=== PATIENT | female | born 1960 | race Caucasian/White ===

== ENCOUNTER → 2018-09-30 | Outpatient (REF) ==
[~2018-09-30] MED LIST: BACTRIM DS1 TAB PO
[2018-09-30 12:55] LABS: CHOLESTEROL HDL RATIO 3.7 (<4.4 (CALC))
== END | disposition home or self-care (01) | DRG 951 ==
LOC: LAB 11:02
PROVIDERS: ATTEND Family Medicine
DX: Z02.6 Encounter for examination for insurance purposes (principal)

== ENCOUNTER → 2018-09-30 | Outpatient (REF) | payer OTHER ==
[2018-09-30 12:20] LABS: HEMATOCRIT 36.9 % (37.0-47.0); HEMOGLOBIN 11.8 g/dl (12.0-16.0); MEAN CELL VOLUME 86.2 fL CALC (80.0-100.0); MEAN CORPUSCULAR HGB 27.6 pG CALC (26.0-32.0); RED BLOOD COUNT 4.28 mill/uL (4.20-5.60); RED CELL DISTRI WIDTH 14.9 % (11.5-15.5)
[2018-09-30 12:54] LABS: ALBUMIN 4.4 g/dL (3.2-5.0); ALKALINE PHOSPHATASE 54 u/l (38-126); ANION GAP 15 (6-22 (CALC)); BILIRUBIN, TOTAL 0.4 mg/dL (0.0-1.4); BUN 25 mg/dL (7-17); BUN/CREATININE RATIO 31 (12-20 (CALC)); CARBON DIOXIDE 23 mmol/l (22-30); CHLORIDE 106 mmol/l (95-108); CREATININE 0.8 mg/dL (0.5-1.0); GFR > 60 ML/MIN (>=60 (CALC)); GFR FOR AFR.AMER. > 60 ML/MIN (>=60 (CALC)); POTASSIUM 4.5 mmol/l (3.5-5.1); SGOT/AST 26 u/l (14-36); SODIUM 139 mmol/l (137-146); TOTAL PROTEIN 7.2 g/dL (6.3-8.2)
[2018-09-30 13:32] LABS: IMMATURE GRANULOCYTES 0.4 % (0.0-5.0); NEUT# 2.7 thou/uL (2.00-7.15)
== END | disposition home or self-care (01) | DRG 639 ==
LOC: LAB 11:04
PROVIDERS: ATTEND Internal Medicine
DX: E11.69 Type 2 diabetes mellitus with other specified complication (principal)

== ENCOUNTER 2021-01-26 10:06 | Inpatient (IN) | payer OTHER ==
[~2021-01-26] VITALS: Ht 157.5 cm; Wt 73.0 kg
--- NOTE | 2021-01-26 10:16 | NUR ---
PT ARRIVED TO [facility] ROOM 269 VIA WHEELCHAIR ACCOMPAINED BY . PT A/O X3. ASSESSMENT AND VITALS COMPLETED.TEMP 99.4 BP 132/82, HR 116, O2 97% ON ROOM AIR. RESPIRATIONS ARE EVEN AND UNLABORED WITH NO DISRTESS NOTED.LUNG SOUNDS ARE CLEAR. HEART RHYTHM NORMAL. BOWEL SOUNS AREACTIVE, LAST REPORTED BM 01/26/21.RADIAL AND PEDAL PULSES STRONG.SKIN INTACT. #22G LAC STARTED,IVF INFUSING PER ORDER, SITE REMAINS HEALTHY AND PATENT.PT DENIES OF ANY PAINS OR DISCOMFORTS.PT ORIENTED TO ROOM AND CALL SYSTEM.ALLERGY BAND APPLIED. ALLERGIES NOTED.ALL SAFETY PRECAUTIONS ARE IN PLACE WITH CALL LIGHT IN REACH.WILL CONTINUE TO MONITOR.
[2021-01-26] MEDS ORDERED: HYDROXYCHLOR200 M1 PO (11:03)
[2021-01-26] MEDS ORDERED: OMEPRAZOLE DR20 MG PO (11:03)
[2021-01-26] MEDS ORDERED: LOSARTAN POTASS25 MG PO (11:13)
[2021-01-26] MEDS ORDERED: ASPIRIN 81 LOW81 MG (11:14)
[2021-01-26] MEDS ORDERED: LORATADINE10 M1 PO (11:15)
[2021-01-26] MEDS ORDERED: VITAMIN D35000 UNI1 PO (11:16)
[2021-01-26] MEDS ORDERED: ZOFRAN4 M1 PO (11:17)
[2021-01-26 11:29] VITALS: BP 132/82
--- NOTE | 2021-01-26 12:30 | NUR ---
DR CAAL AT BEDSIDE
--- NOTE | 2021-01-26 12:54 | NUR ---
PT RESTING IN SEMI FOWLERS POSITION.RESPIRATIONS ARE EVEN AND UNLABORE DWITH NO DISTRESS NOTED. #22G LAC INFUSING WITH IVF PER ORDER, SITE REMAINS HEALTHY AND PATENT. PT DENIES OF ANY NEEDS AT THIS TIME.ALL SAFETY PRECAUTIONS ARE IN PLACE. WILL CONTINUE TO MONITOR.
[2021-01-26 12:56] LABS: HEMATOCRIT 28.4 % (37.0-47.0); MEAN CELL VOLUME 78.7 fL CALC (80.0-100.0); MEAN CORPUSCULAR HGB 24.9 pG CALC (26.0-32.0); MEAN CORPUSCULAR HGB CONC 31.7 g/dL CAL (32.0-36.0); RED BLOOD COUNT 3.61 mill/uL (4.20-5.60); RED CELL DISTRI WIDTH 15.7 % (11.5-15.5)
[2021-01-26 13:34] LABS: ALBUMIN 3.4 g/dL (3.2-5.0); BILIRUBIN, TOTAL 0.7 mg/dL (0.0-1.4); CREATININE 1.3 mg/dL (0.5-1.0); TOTAL PROTEIN 7.1 g/dL (6.3-8.2)
--- NOTE | 2021-01-26 13:56 | NUR ---
REASSESSMENT OF TEMP REUSLTING IN 96.8.
[2021-01-26 15:11] LABS: URINE BILIRUBIN - DIPSTICK NEGATIVE (NEGATIVE); URINE BLOOD DIPSTICK TRACE-INTACT (NEGATIVE); URINE COLOR YELLOW; URINE GLUCOSE - DIPSTICK NEGATIVE (NEGATIVE); URINE KETONE TRACE mg/dL (NEGATIVE); URINE LEUK ESTERASE LARGE (NEGATIVE); URINE NITRITE - DIPSTICK NEGATIVE (Negative); URINE PROTEIN - DIPSTICK TRACE mg/dL (NEG-TRACE); URINE UROBILINOGEN - DIPSTICK 0.2 E.U./dL (0.2)
[2021-01-26 15:17] LABS: URINE SQUAMOUS EPITHELIAL CELL RARE EPI/hpf (0-FEW); URINE WBC 50-100 WBC/hpf (0-5)
[2021-01-26 15:18] LABS: URINE BACTERIA MODERATE hpf
[2021-01-26 15:46] VITALS: BP 90/62
--- NOTE | 2021-01-26 15:51 | NUR ---
PT RESTING IN SEMI FOWLERS POSITION. RESPIRATIONS ARE EVEN AND UNLABORED WITH NO DISRTESS NOTED ON ROOM AIR. #22G LAC INFUSING WITH IVF PER ORDER, SITE REMAINS HEALTHY AND PATENT. PT STATES ZOFRAN IS HELPING WITH ABD CRAMPING. PT DENIES OF ANY NEEDS AT THIS TIME. ALL SAFETY PERCAUTIONS ARE IN PLACE WITH CALL LIGHT INREACH. WILL CONTINUE TO MONITOR.
[2021-01-26 17:53] VITALS: BP 90/53
--- NOTE | 2021-01-26 17:55 | NUR ---
REASSESSMENT OF BP AFTER COMPLETION OF BOLUS RESULTING IN 90/53, HR 74.RESPIRATIONS REMAINS EVEN AND UNLABORED WITH NO DISTRESS. PT DENIES OF ANY NEEDS AT THIS TIME.ALL SAFETY PRECAUTIONS ARE IN PLACE WITH CALL LIGHT IN REACH. WILL CONTINUE TO MONITOR.
[2021-01-26 18:57] VITALS: BP 96/65
--- NOTE | 2021-01-26 20:10 | NUR ---
PT MEDICATED FOR CONSTIPATION, ASSESSEMENT COMPLETED AT THIS TIME. LUNG SOUNDS ARE CLEAR, TRACE EDEMA BLE. HYPO BOWEL SOUDS AUSCULTATED. NON-DISTENDED/FIRM. LOCX4. DENIES PAIN OR NAUSEA AT THIS TIME. REVIEWED MEDICATION SCHEDULE AND POC WITH HER, VERBALIZED UNDERSTANDING. PILLOW PLACED UNDER LEFT ARM FOR IV COMFORT/SITE APPEARS HEALTHY. CALL LIGHT IN HAND AND I ENCOURAGED HER TO CALL ANY NEEDS ARISE.
--- NOTE | 2021-01-26 21:20 | NUR ---
PT MEDICATED ORDERS PROVIDE. IV ANTIBIOTIC THERAPY RUNNING AT THIS TIME TO SITE IN THE RAC/APPEARS PATENT AND HEALTHY. SHE DENIES ANY NEEDS AT THIS TIME. CALL LIGHT IN HAND, LIGHTS AND TV ON LOW. VOCALIZED THAT SHE WILL CALL IF ANY NEEDS ARISE.
--- NOTE | 2021-01-26 23:35 | NUR ---
PT AWAKE WATCHING TV. MEDICATED WITH TYLENOL FOR BACK PAIN REPORTEDLY "FROM THE BED." ADDITIONAL PILLOWS PROVIDED FOR COMFORT AND PO FLUIDS PROVIDED. IVF RUNNING TO [facility]/SITE APPEARS PATENT AND HEALTHY. I ENCOURAGED HER TO CALL IF ANY NEEDS OF ASSISTANCE ARISE, VERBALIZED UNDERSTANDING. CALL LIGHT W/IN REACH.
--- NOTE | 2021-01-27 02:39 | NUR ---
PT CALLED, IVPUMP SOUNDING. SHE WAS SLEEPING. CALL LIGHT AT SIDE.
[2021-01-27 03:44] VITALS: BP 99/66
[2021-01-27 06:24] LABS: HEMATOCRIT 26.2 % (37.0-47.0); HEMOGLOBIN 8.2 g/dl (12.0-16.0); MEAN CELL VOLUME 80.9 fL CALC (80.0-100.0); MEAN CORPUSCULAR HGB 25.3 pG CALC (26.0-32.0); MEAN CORPUSCULAR HGB CONC 31.3 g/dL CAL (32.0-36.0); RED BLOOD COUNT 3.24 mill/uL (4.20-5.60)
[2021-01-27 06:48] LABS: ANION GAP 11 (6-22 (CALC)); BUN 20 mg/dL (7-17); BUN/CREATININE RATIO 18 (12-20 (CALC)); CARBON DIOXIDE 23 mmol/l (22-30); CHLORIDE 104 mmol/l (95-108); CREATININE 1.1 mg/dL (0.5-1.0); GFR 51 ML/MIN (>=60 (CALC)); GFR FOR AFR.AMER. > 60 ML/MIN (>=60 (CALC)); POTASSIUM 4.3 mmol/l (3.5-5.1); SODIUM 134 mmol/l (137-146)
--- NOTE | 2021-01-27 07:00 | NUR ---
RECIEVED REPORT FROM RENE PHAN
[2021-01-27 07:01] LABS: MAGNESIUM 2.3 mg/dL (1.6-2.3)
[2021-01-27 07:26] VITALS: BP 102/61
--- NOTE | 2021-01-27 07:26 | NUR ---
PT RESTING IN SEMI FOWLERS POSITION. ASSESSMENT AND VITALS COMPLETED. BP 102/61, HR 82, O2 100% ON ROOM AIR. RESPIRATIONS ARE EVEN AND UNLABORED WITH NO DISTRESS NOTED. LUNG SOUNDS ARE CLEAR. HEART RHYTHM IS NORMAL. BOWEL SOUNDS ARE ACTIVE. LOSSE STOOL REPORTED. SKIN INTACT.1+ EDEMA NOTED TO BLE. #22G LAC INFUSING WITH IVF PER ORDER, SITE REMAINS HEALTHY AND PATENT. PT DENIES OF ANY PAINS OR DISCOMFORTS AT THIS TIME. ALL SAFTEY PRECAUTIONS ARE IN PLACE WITH CALL LIGHT IN REACH. WILL CONTINUE TO MONITOR.
--- NOTE | 2021-01-27 09:31 | NUR ---
DR. CAAL AND JEROD STUART AT BEDSIDE
--- NOTE | 2021-01-27 11:14 | NUR ---
PT OF OUT SHOWER IN RECYLINER. RESPIRATIONS ARE EVEN AND UNLABORED WITH NO DISTRESS NOTED. #22G LAC INFUSING WITH IVF PER ORDER, SITE REMAINS HEALTHY AND PATENT. PT MEDICATED WITH ZOFRAN FOR NAUSEA. TYLENOL ADMINISTERED FOR PAIN. PT DENIES OF ANY ADDITIONAL NEEDS AT THIS TIME. ALL SAFETY PRECAUTIONS ARE IN PLACE WILL CONTINUE TO MONITOR.
[2021-01-27 14:40] VITALS: BP 97/74
--- NOTE | 2021-01-27 15:43 | NUR ---
PT RESTING IN SEMI FOWLERS POSITION ON PHONE. RESPIRATIONS ARE EVEN AND UNLABORED WITH NO DISTRESS NOTED. #22G LAC INFUSING WITH IVF PER ORDER, SITE REMAINS HEALTHY AND PATENT. PT DENIES OF ANY NEEDS AT THIS TIME. ALL SAFETY PRECAUTIONS ARE IN PLACE WITH CALL LIGHT IN REACH. WILL CONTINUE TO MONITOR.
--- NOTE | 2021-01-27 18:28 | NUR ---
NURY TELLEZ APPLIED. PT MEDICATED FOR 6/10 BACK PAIN. PT TOLERATED WELL. PT DENIES OF ANY ADDITONAL NEEDS AT THIS TIME. ALL SAFETY PRECAUTIONS ARE IN PLACE WITH CALL LIGHT IN REACH. WILL CONTINUE TO MONITOR.
[2021-01-27 18:40] VITALS: BP 108/70
--- NOTE | 2021-01-27 20:01 | NUR ---
PATIENT RESTING IN BED WATHCING TV. RESP EVEN AND UNLABORED. NO S/S OF DISTRESS NOTED. FALL AND SAFTEY PRECAUTIONS IN PLACE. PATIENT SHE IS FEELING BETTER TODAY. IV INFUSING FLUIDS. PLAN OF CARE DISCUSSED. PATIENT INFORMED TO CALL WITH ANY QUESTIONS OR CONCERNS.
--- NOTE | 2021-01-27 23:30 | NUR ---
PATIENT RESTING IN BED WITH EYES CLOSED. RESP EVEN AND UNLABORED. NO S/S OF DISTRESS NOTED. FALL AND SAFTEY PRECAUTIONS IN PLACE.
[2021-01-28 03:32] VITALS: BP 120/81
[2021-01-28 03:56] LABS: HEMATOCRIT 30.1 % (37.0-47.0); HEMOGLOBIN 9.1 g/dl (12.0-16.0); MEAN CELL VOLUME 82.2 fL CALC (80.0-100.0); MEAN CORPUSCULAR HGB 24.9 pG CALC (26.0-32.0); MEAN CORPUSCULAR HGB CONC 30.2 g/dL CAL (32.0-36.0); RED BLOOD COUNT 3.66 mill/uL (4.20-5.60); RED CELL DISTRI WIDTH 16.3 % (11.5-15.5)
[2021-01-28 04:09] LABS: ALKALINE PHOSPHATASE 80 u/l (38-126); BUN 14 mg/dL (7-17); BUN/CREATININE RATIO 14 (12-20 (CALC)); CHLORIDE 109 mmol/l (95-108); GFR 57 ML/MIN (>=60 (CALC)); GFR FOR AFR.AMER. > 60 ML/MIN (>=60 (CALC)); POTASSIUM 4.1 mmol/l (3.5-5.1); SGOT/AST 26 u/l (14-36); SODIUM 135 mmol/l (137-146); TOTAL PROTEIN 5.7 g/dL (6.3-8.2)
[2021-01-28 04:13] LABS: ALBUMIN 2.6 g/dL (3.2-5.0); ANION GAP 12 (6-22 (CALC)); BILIRUBIN, TOTAL 0.2 mg/dL (0.0-1.4); CARBON DIOXIDE 18 mmol/l (22-30)
--- NOTE | 2021-01-28 04:33 | NUR ---
PATIENT WOKE UP AT 0340 WITH CHEST PAIN/PRESSURE.EKG PERFORMED- ER DOCTOR REVIEWED, HE STATED IT WAS ABNORMAL. TROP WERE POSITIVE, BNP ELEVATED. NOTIFIED. REQUESTING TRANSFER TO [facility]. PATIENT AWARE AND AGREEING TO TRANSFER AT THIS TIME.
--- NOTE | 2021-01-28 04:40 | NUR ---
CALL PLACED TO [facility] TRANSFER [facility]. GAVE INFORMATION TO ABBEY AND FAX'D OVER REQUESTED PAPERS. AWAITING ROOM ASSIGNMENT.
--- NOTE | 2021-01-28 04:56 | NUR ---
NEW ORDERS GIVEN FOR ASA, LOPRESSOR, LOW-DOSE HEPARIN DRIP, LIPITOR, AND REPEAT TROP AT 0545 PER
[2021-01-28 05:42] LABS: ACT PARTIAL THROMBO TIME 28.3 SECONDS (20.0-32.5); PROTHROMBIN TIME 10.3 SECONDS (9.0-12.5)
--- NOTE | 2021-01-28 05:45 | NUR ---
RECEIVED CALL FROM ABBEY MADRID AT [facility], WHO STATED THAT PATIENT INSURANCE WOULD REQUIRE VERIFICATION FROM BUSINESS OFFICE. CALL WAS IMMEDIATELY PLACED TO Rose Mary GÓMEZ, [employer], WHO CALLED [facility] TO ADVISE OF PARTNERSHIP AGREEMENT. BY THIS TIME [facility] HAD REALIZED THEIR ERROR AND WILL CONTACT US WITH NAME OF ACCEPTING PHYSICIAN.
--- NOTE | 2021-01-28 07:05 | NUR ---
REPORT RECEIVED FROM RENE HOBSON
--- NOTE | 2021-01-28 07:23 | NUR ---
[facility] CALLED AND ETA 30 MINUTES FOR TRANSPORT TO [facility]
--- NOTE | 2021-01-28 07:30 | NUR ---
PT RESTING IN SEMI FOWLERS POSITION,A&O X3;VS OBTAINED AND ASSESSMENT COMPLETED;PT DENIES ANY CURRENT PAIN OR DISCOMFORTS,PAIN SCALE AND REPORTING EDUCATED;RESPIRATIONS EVEN AND UNLABORED ON RA;ABDOMEN SOFT ON PALPATION AND ACTIVE IN ALL 4 QUADRANTS;#22G TO LAC INFUSING HEPRAIN @ 17ML/HR;PT RE-EDUCATED ON POC INCLUDING TRANSFER TO [facility] AND VERBALIZES UNDERSTANDING,PER [facility]ER DIAL TIME 0800;PT DENIES ANY ADDITIONAL NEEDS AND IS ENCOURAGED TO CALL FOR ASSISTANCE IF NEEDED;FALL PRECAUTIONS IN PLACE WITH BED IN THE LOWEST POSITION AND CALL LIGHT IN REACH;WILL CONTINUE TO MONITOR
[2021-01-28 08:00] VITALS: BP 103/66
--- NOTE | 2021-01-28 08:08 | NUR ---
PT TRANSFERRED TO [facility] AT THIS TIME VIA STRETCHER ACCOMPANIED [facility].ALL BELONGINGS LEFT WITH PT.
--- NOTE | 2021-01-28 08:31 | NUR ---
REPORT CALLED TO RENE SMITH AT [facility].
[2021-03-30] MEDS ORDERED: PROCHLORPER25 MG PO (09:52)
[2021-03-30] MEDS ORDERED: METOPROL TAR25 MG PO (09:52)
[2021-03-30] MEDS ORDERED: ACETAMIN500 M2 PO (09:53)
[2021-03-30] MEDS ORDERED: BC HEADACH1 PO (09:54)
[2021-03-30] MEDS ORDERED: PACLITAXEL IV (09:54)
[2021-03-30] MEDS ORDERED: CARBOPLATIN IM (09:55)
== END 2021-01-28 08:09 | disposition short-term general hospital (02) | DRG 871 ==
LOC: MS2 10:06
PROVIDERS: Nurse Practitioner Family; ADMIT Internal Medicine; ATTEND Hospitalist
DX: A41.51 Sepsis due to Escherichia coli [E. coli] (principal); I21.4 Non-ST elevation (NSTEMI) myocardial infarction; N39.0 Urinary tract infection, site not specified; N17.9 Acute kidney failure, unspecified; R65.20 Severe sepsis without septic shock; E86.0 Dehydration; D64.9 Anemia, unspecified; R73.03 Prediabetes; M06.9 Rheumatoid arthritis, unspecified; K21.9 Gastro-esophageal reflux disease without esophagitis; Z79.899 Other long term (current) drug therapy; Z20.822 Contact with and (suspected) exposure to COVID-19
CPT/HCPCS: J0692; J1644; J1650; J1756; S0164

== ENCOUNTER 2021-04-02 06:58 | Day surgery (SDC) | payer OTHER ==
[~2021-04-02] VITALS: Ht 157.5 cm; Wt 66.3 kg
[~2021-04-02 06:58] MED LIST changes: +ACETAMIN500 M2 PO; +ASPIRIN 81 LOW81 MG; +BC HEADACH1 PO; +CARBOPLATIN IM; +HYDROXYCHLOR200 M1 PO; +LORATADINE10 M1 PO; +LOSARTAN POTASS25 MG PO; +METOPROL TAR25 MG PO; +OMEPRAZOLE DR20 MG PO; +PACLITAXEL IV; +PROCHLORPER25 MG PO; +VITAMIN D35000 UNI1 PO; +ZOFRAN4 M1 PO
[2021-04-02 07:45] LABS: HEMATOCRIT 34.2 % (37.0-47.0); HEMOGLOBIN 10.7 g/dl (12.0-16.0); IMMATURE GRANULOCYTES 0.4 % (0.0-5.0); MEAN CELL VOLUME 85.1 fL CALC (80.0-100.0); MEAN CORPUSCULAR HGB 26.6 pG CALC (26.0-32.0); MEAN CORPUSCULAR HGB CONC 31.3 g/dL CAL (32.0-36.0); NEUT# 2.11 thou/uL (2.00-7.15); RED BLOOD COUNT 4.02 mill/uL (4.20-5.60); RED CELL DISTRI WIDTH 17.6 % (11.5-15.5)
[2021-04-02 08:12] LABS: INTERNATIONAL NORMALIZED RATIO 0.9 RATIO (0.7-1.3); PROTHROMBIN TIME 9.6 SECONDS (9.0-12.5)
[2021-04-02 09:31] VITALS: BP 138/70
== END 2021-04-02 09:39 | disposition home or self-care (01) | DRG 755 ==
LOC: ORM 06:58
PROVIDERS: ATTEND Radiology Diagnostic Radiology
PROC: 0JH63WZ Insertion of Totally Implantable Vascular Access Device into Chest Subcutaneous Tissue and Fascia, Percutaneous Approach (ICD-10-PCS; principal; 2021-04-02)
PROC: 02HV33Z Insertion of Infusion Device into Superior Vena Cava, Percutaneous Approach (ICD-10-PCS; 2021-04-02)
PROC: B518ZZA Fluoroscopy of Superior Vena Cava, Guidance (ICD-10-PCS; 2021-04-02)
DX: C56.9 Malignant neoplasm of unspecified ovary (principal); C78.00 Secondary malignant neoplasm of unspecified lung; C77.2 Secondary and unspecified malignant neoplasm of intra-abdominal lymph nodes; D64.9 Anemia, unspecified; E11.9 Type 2 diabetes mellitus without complications; I25.10 Atherosclerotic heart disease of native coronary artery without angina pectoris; M06.9 Rheumatoid arthritis, unspecified; I25.2 Old myocardial infarction; I73.00 Raynaud's syndrome without gangrene

== ENCOUNTER 2024-01-14 11:10 | Emergency (ER) | payer OTHER ==
[~2024-01-14] VITALS: Ht 157.5 cm; Wt 80.0 kg
[2024-01-14] VITALS (35 sets, daily range): BP systolic 83–129; BP diastolic 40–83
[~2024-01-14 11:10] MED LIST changes: +ZEJULA PO
[2024-01-14 11:39] LABS: BASO% 0.3 % (0-3); HEMATOCRIT 24.8 % (37.0-47.0); HEMOGLOBIN 7.8 g/dl (12.0-16.0); IMMATURE GRANULOCYTES 0.8 % (0.0-5.0); MEAN CELL VOLUME 86.1 fL CALC (80.0-100.0); MEAN CORPUSCULAR HGB 27.1 pG CALC (26.0-32.0); MEAN CORPUSCULAR HGB CONC 31.5 g/dL CAL (32.0-36.0); MONO% 7.4 % (2-13); NEUT# 3.08 thou/uL (2.00-7.15); NEUT% 78.5 % (42-76); RED BLOOD COUNT 2.88 mill/uL (4.20-5.60); RED CELL DISTRI WIDTH 18.3 % (11.5-15.5)
[2024-01-14 11:57] LABS: ALBUMIN 3.5 g/dL (3.2-5.0); BILIRUBIN, TOTAL 0.8 mg/dL (0.02-1.3); CREATININE 1.1 mg/dL (0.5-1.0); POTASSIUM 4.3 mmol/l (3.5-5.1); TOTAL PROTEIN 6.3 g/dL (6.3-8.2)
[2024-01-14 12:08] LABS: LIPASE 344 u/l (23-300)
[2024-01-14 12:38] LABS: TSH, 3RD GENERATION 5.25 uIU/mL (0.47 - 4.68)
[2024-01-14] MEDS ORDERED: SODIUM CHLORIDE 0.9% 500 ML IV ONE (14:35)
[2024-01-14 14:55] LABS: URINE BILIRUBIN - DIPSTICK Negative (NEGATIVE); URINE BLOOD DIPSTICK Small (NEGATIVE); URINE GLUCOSE - DIPSTICK Negative (NEGATIVE); URINE KETONE Negative (NEGATIVE); URINE NITRITE - DIPSTICK Negative (Negative); URINE PROTEIN - DIPSTICK 30 mg/dL (NEG-TRACE); URINE SPECIFIC GRAVITY 1.015; URINE UROBILINOGEN - DIPSTICK 0.2 E.U./dL (0.2)
[2024-01-14 15:03] LABS: URINE COLOR Yellow; URINE LEUK ESTERASE Small (NEGATIVE)
[2024-01-14 15:06] LABS: URINE SQUAMOUS EPITHELIAL CELL FEW EPI/hpf (0-FEW)
[2024-01-14] MEDS ORDERED: OMNICEF300 MG PO (15:21)
== END 2024-01-14 18:27 | disposition home or self-care (01) | DRG 812 ==
LOC: ED 11:10 → INF 12:01 → ED 18:27
PROVIDERS: Family Medicine
PROC: 30233N1 Transfusion of Nonautologous Red Blood Cells into Peripheral Vein, Percutaneous Approach (ICD-10-PCS; principal; 2024-01-14)
DX: D64.9 Anemia, unspecified (principal); N39.0 Urinary tract infection, site not specified; I10 Essential (primary) hypertension; E11.9 Type 2 diabetes mellitus without complications; M06.9 Rheumatoid arthritis, unspecified; I25.2 Old myocardial infarction; Z85.43 Personal history of malignant neoplasm of ovary; Z92.21 Personal history of antineoplastic chemotherapy
CPT/HCPCS: P9016; Q9967

== ENCOUNTER 2024-02-05 23:16 | Inpatient (IN) | payer OTHER ==
[~2024-02-05] VITALS: Ht 157.5 cm; Wt 62.5 kg
[~2024-02-05 23:16] MED LIST changes: +OMNICEF300 MG PO
--- NOTE | 2024-02-05 23:25 | NUR ---
PT TO RM #10 VIA WC AT THIS TIME, PT NOTED WITH MODERATE INCREASED WOB AND SPEAKING IN SHORT PHRASES AT THIS TIME, PT'S FAMILY VOICES RECENT CT SCANS REVEALING PNUEMONITIS, PT NOTED ON 86-89% ON , PT NOTED WITH SEVERAL CONTUSIONS TO BILATERAL KNEES DUE TO FALL ON FRIDAY, MD NOTIFIED IMMEDIATELY OF PT STATUS.
[2024-02-05 23:30] VITALS: BP 134/67
[2024-02-05] MEDS ORDERED: IPRATROPIUM-Albuterol 0.5MG-2.5MG/3 ML NEB ONE (23:30)
[2024-02-05] MEDS ORDERED: MORPHINE SULFATE 4 MG/ML VIAL IV ONE (23:30)
[2024-02-05] MEDS ORDERED: KETOROLAC TROMETHAMINE 30 MG/ML SDV IV ONE (23:30)
[2024-02-05] MEDS ORDERED: PROMETHAZINE HCL 25 MG/ML AMP IV ONE (23:50)
[2024-02-05] MEDS ORDERED: SODIUM CHLORIDE 0.9% 1,000 ML IV ONE (23:50)
[2024-02-06] VITALS (95 sets, daily range): BP systolic 84–175; BP diastolic 51–131
[2024-02-06 00:01] LABS: BASO% 0.1 % (0-3); HEMATOCRIT 29.9 % (37.0-47.0); HEMOGLOBIN 9.5 g/dl (12.0-16.0); IMMATURE GRANULOCYTES 1.3 % (0.0-5.0); LYMPH% 3.8 % (15-41); MEAN CELL VOLUME 90.6 fL CALC (80.0-100.0); MEAN CORPUSCULAR HGB 28.8 pG CALC (26.0-32.0); MEAN CORPUSCULAR HGB CONC 31.8 g/dL CAL (32.0-36.0); MONO% 5.7 % (2-13); NEUT# 10.14 thou/uL (2.00-7.15); NEUT% 89.1 % (42-76); RED BLOOD COUNT 3.3 mill/uL (4.20-5.60)
[2024-02-06] MEDS ORDERED: TOPROL XL25 M1 PO (00:01)
[2024-02-06] MEDS ORDERED: PREDNISONE20 MG PO (00:03)
--- NOTE | 2024-02-06 00:14 | NUR ---
CALL TO DR CARI SILVA PATIENT TRANSFER TO ICU.
[2024-02-06 00:17] LABS: BILIRUBIN, TOTAL 1.3 mg/dL (0.02-1.3); CREATININE 1.4 mg/dL (0.5-1.0); TOTAL PROTEIN 6.9 g/dL (6.3-8.2)
[2024-02-06 00:31] LABS: INTERNATIONAL NORMALIZED RATIO 1.2 RATIO (0.7-1.3); POTASSIUM 5.1 mmol/l (3.5-5.1)
[2024-02-06 00:35] LABS: PROTHROMBIN TIME 11.6 SECONDS (9.0-12.5)
[2024-02-06] MEDS ORDERED: methylPREDNISolone SODIUM SUCC 125 MG/2 ML SDV IV ONE (00:35)
[2024-02-06] MEDS ORDERED: Levofloxacin 750 mg Premix 150 ML IV ONE (00:35)
[2024-02-06] MEDS ORDERED: SODIUM CHLORIDE 0.9% 1,000 ML IV ONE (00:35)
--- NOTE | 2024-02-06 00:46 | NUR ---
AT BEDSIDE FOR DISCUSSION OF RESULTS AND PLAN OF CARE.
[2024-02-06] MEDS ORDERED: ACETAMINOPHEN 325 MG/TAB PO PRN (00:50)
[2024-02-06] MEDS ORDERED: ONDANSETRON HCl 4 MG/2 ML SDV IV PRN ×2 (00:50→19:55)
[2024-02-06] MEDS ORDERED: ALUM & MAG HYDROX-SIMETHICONE 30 ML PO PRN (00:50)
[2024-02-06] MEDS ORDERED: IBUPROFEN 800 MG/TAB PO PRN (00:50)
[2024-02-06] MEDS ORDERED: MAGNESIUM HYDROXIDE 30 ML UDC PO PRN (00:50)
[2024-02-06] MEDS ORDERED: FAMOTIDINE 10MG/ML 2ML SDV IV PRN (00:50)
[2024-02-06] MEDS ORDERED: ONDANSETRON 4 MG/TAB ODT PO PRN (00:50)
[2024-02-06] MEDS ORDERED: PROMETHAZINE HCL 25 MG/ML AMP IV PRN (00:55)
[2024-02-06] MEDS ORDERED: SODIUM CHLORIDE 0.9% 1,000 ML IV PRN (00:55)
--- NOTE | 2024-02-06 01:15 | NUR ---
PER CHRISTIE AT BEDSIDE, PATIENT HAS BEEN UNABLE TO TOLERATE LARGE AMOUNTS OF FLUID IN THE PAST. WRITTER ASKED EDP REGARDING FLUID BOLUS AND [place] FLUID, NO NEW ORDERS OR CHANGES RECIEVED.
--- NOTE | 2024-02-06 01:25 | NUR ---
REPORT CALLED TO Lan JAMESON RN
[2024-02-06] MEDS ORDERED: DiphenhydrAMINE HCL 50 MG/ML SDV ONE (01:26)
--- NOTE | 2024-02-06 01:30 | NUR ---
VERBAL ORDER RECEIVED FOR 20MG OF LASIX IV STAT.
--- NOTE | 2024-02-06 01:30 | NUR ---
@0127 PATIENT BECOMING EXTREMELY SHORT OF BREATH, LABORED BREATHING WITH ROCHI SOUNDS BILATERALLY. PATIENT OXYGEN INCREASED TO 4L WITH NO CHANGE TO SATURATION CURRENTLY AT 78% @0130CALL TO EDP REGARDING INCREASED LABORED BREATHING AND WET LUNG SOUNDS.
[2024-02-06] MEDS ORDERED: FUROSEMIDE 40 MG/4 ML SDV ONE ×2 (01:32→01:53)
--- NOTE | 2024-02-06 01:41 | NUR ---
CALL TO Rayna MENA APRN TO TRANSFER PATIENT TO ICU. PATIENT TO BE ON BIPAP AM ICU TRANSFER. INFORMED Rayna CARCAMO PATIENT HAD DESAT INTO SATURATION OF 40%.
--- NOTE | 2024-02-06 02:10 | NUR ---
[place] PLACED. PATIENT TOLERATED WELL 250CC OF CLEAR YELLOW URINE.
--- NOTE | 2024-02-06 02:25 | NUR ---
REPORT CALLED TO A INO LÓPEZ.
[2024-02-06] MEDS ORDERED: ENOXAPARIN SODIUM 40 MG/0.4 ML SYR SC SCH (02:30)
--- NOTE | 2024-02-06 02:30 | NUR ---
PATIENT TRASPORTED TO ICU BED 4
--- NOTE | 2024-02-06 02:50 | NUR ---
PATIENT ARRIVED TO ICU ACCOMPANIED BY ER NURSES, RESPIRATORY THERAPY AND HER DAUGHTER. PATIENT IS DROWSY AND HAS LABORED BREATHING. CALLED DR. ALCALA TO GIVE UPDATE ON PATIENT'S STATUS. ORDERS ENTERED.
[2024-02-06] MEDS ORDERED: SODIUM BICARBONATE 150 ML in DEXTROSE 5% 850 ML IV SCH (03:35)
[2024-02-06] MEDS ORDERED: LORazepam 2 MG/ML IV PRN (03:35)
--- NOTE | 2024-02-06 04:30 | NUR ---
PATIENT CONTINUES TO HAVE INCREASED WORK OF BREATHING. DAUGHTER AT BEDSIDE. PATIENT IS ANXIOUS ON BIPAP ADMINISTERED ATIVAN AND REPOSITIONED PATIENT.
[2024-02-06 05:38] LABS: BASO% 0.2 % (0-3); HEMATOCRIT 24.3 % (37.0-47.0); HEMOGLOBIN 7.9 g/dl (12.0-16.0); LYMPH% 5.4 % (15-41); MEAN CELL VOLUME 89.7 fL CALC (80.0-100.0); MEAN CORPUSCULAR HGB 29.2 pG CALC (26.0-32.0); MEAN CORPUSCULAR HGB CONC 32.5 g/dL CAL (32.0-36.0); MONO% 3.8 % (2-13); NEUT# 5.44 thou/uL (2.00-7.15); NEUT% 89.6 % (42-76); RED BLOOD COUNT 2.71 mill/uL (4.20-5.60); RED CELL DISTRI WIDTH 18.6 % (11.5-15.5)
[2024-02-06 05:49] LABS: CREATININE 1.4 mg/dL (0.5-1.0); POTASSIUM 4.1 mmol/l (3.5-5.1)
[2024-02-06] MEDS ORDERED: methylPREDNISolone SODIUM SUCC 125 MG/2 ML SDV IV SCH (06:00)
--- NOTE | 2024-02-06 06:30 | NUR ---
SPOKE WITH DR. ALCALA AND UPDATED ON PATIENT STATUS. NEW ORDER FOR REPEAT CHEST XRAY AND LACTIC ACID TO BE REDRAWN AT 0800.
[2024-02-06] MEDS ORDERED: IPRATROPIUM-Albuterol 0.5MG-2.5MG/3 ML IN SCH (07:00)
--- NOTE | 2024-02-06 07:45 | NUR ---
ASSUMED ASSIGNMENT. RESPIRATIONS EVEN SHALLOW AND AT A RATE OF 30. LUNG SOUNDS DIMINISHED BILATERALLY. PATIENT ON BIPAP. PATIENT OPENS EYES TO VERBAL COMMANDS BUT REMAINS LETHARGIC. HEART RATE SINUS TACH AT A RATE OF 95. CONSULT PLACED FOR PULMONOLOGY. ATTEMPTING SECONDARY IV PLACEMENT WILL CONTINUE TO MONITOR
[2024-02-06] MEDS ORDERED: SODIUM CHLORIDE 0.9% 500 ML IV ONE (07:55)
[2024-02-06] MEDS ORDERED: NOREPINEPHRINE BITARTRATE 4 MG in DEXTROSE 5% 250 ML IV PRN (07:55)
[2024-02-06] MEDS ORDERED: PROPOFOL 100 ML IV PRN (07:55)
[2024-02-06] MEDS ORDERED: FUROSEMIDE 40 MG/4 ML SDV IV SCH ×2 (08:00→16:00)
[2024-02-06] MEDS ORDERED: DEXAMETHASONE SODIUM PHOSPHATE PF 10 MG/ML SDV IV SCH ×2 (09:00→21:00)
[2024-02-06 09:02] LABS: BASO% 0.1 % (0-3); HEMATOCRIT 27.8 % (37.0-47.0); IMMATURE GRANULOCYTES 1.1 % (0.0-5.0); LYMPH% 7.6 % (15-41); MEAN CELL VOLUME 89.4 fL CALC (80.0-100.0); MEAN CORPUSCULAR HGB 28.9 pG CALC (26.0-32.0); MEAN CORPUSCULAR HGB CONC 32.4 g/dL CAL (32.0-36.0); MONO% 5.4 % (2-13); NEUT# 6.01 thou/uL (2.00-7.15); NEUT% 85.8 % (42-76); RED BLOOD COUNT 3.11 mill/uL (4.20-5.60); RED CELL DISTRI WIDTH 18.9 % (11.5-15.5)
[2024-02-06] MEDS ORDERED: CEFEPIME HYDROCHLORIDE 2 GM in SODIUM CHLORIDE 0.9% 100 ML IV SCH (10:00)
[2024-02-06] MEDS ORDERED: VANCOMYCIN HCL 750 MG in SODIUM CHLORIDE 0.9% 235 ML IV SCH (11:00)
--- NOTE | 2024-02-06 11:44 | NUR ---
PATIENT MORE ALERT AND ORIENTED OPENING EYES SPONTANEOUSLY. PATIENT STILL REMAINS WITH SHALLOW BREATHING BUT RATE IS DOWN TO 27. PATIENT REMAINS SINUS TACH AT 100. PATIENT DENIES ANY PAIN OR DISCOMFORT AT THIE TIME. PULMONOLOGY CONSULT COMPLETE AND INITIAL CONSULT CALL TO CARDIOLOGY COMPLETED WILL CONTINUE TO MONITOR
--- NOTE | 2024-02-06 13:02 | NUR ---
S: MICHELA FOWLER is a 63 F who presents with shortness of breath. She has a history of arthritis, cancer, diabetes, hypertension, osteroporosis, NC with no stents, and GERD. All medications in patient's chart were reviewed. O: VS: BP 129/75 mmHg, P 108, RR 40,T 97.2 F W 62.5 kg, HT 147 cm, Scr= 1.4 mg/dl ,CrCl= 41.1 ml/min A: Blood culture is pending. P: Patient is on cefepime 2 g IV Q12H. Vancomycin ordered for pharmacy to dose. Start Vancomycin 750 mg IV Q24H. Vancomycin trough is drawn before the 4th dose on 02/09/24 at 1030. Vancomycin goal trough is between 15-20 mcg/ml. Pharmacy will follow and or advise on antibiotics use as needed.
--- NOTE | 2024-02-06 14:06 | NUR ---
PATIENT RESTING WITH EYES CLOSED BUT OPENS SPONTANEOUSLY TO VOICE. PATIENT NO LONGER LETHARGIC. RESPIRATIONS REMAIN SHALLOW BUT LESS LABORED THAN PREVIOUS NOTE. PATIENT STILL DENIES CHEST PAIN, FAMILY REMAINS AT BEDSIDE. PATIENT BREATHING AT 28 RESPIRATIONS PER MINUTE BIPAP FIO2 DOWN TO 40% WITH 100% O2 SATURATION ON THE MONITOR. WILL CONTINUE O MONITOR
--- NOTE | 2024-02-06 16:02 | NUR ---
PT IS RESTING IN BED EYES CLOSED, APPEARS COMFORTABLE. DAUGHTER IS AT BEDSIDE, PT DENIES PAIN AT THIS TIME AND IS STILL ON BIPAP AT 40% FIO2. WILL CONTINUE TO CLOSELY MONITOR
--- NOTE | 2024-02-06 18:54 | NUR ---
PT IS SITTING UP IN BED ON BIPAP. SLEEPING AND COMFORTABLE, OXYGEN 100% AND FAMILY AT BEDSIDE. CALL LIGHT IN REACH
--- NOTE | 2024-02-06 19:25 | NUR ---
PER DAY SHIFT RN AND PATIENT'S DAUGHTER NEREYDA ALCALA IS OK WITH CT SCANS TO BE POST-PONED UNTIL PATIENT IS MORE STABLE ON BIPAP AND ABLE TO TOLERATE LAYING DOWN FLAT FOR SCAN. AT THIS TIME THE PATIENT IS TACHYPNEIC AND UNABLE TO LAY DOWN LESS THAN 45 DEGREES. PATIENT'S DAUGHTER AGREES WITH PLAN OF CARE.
--- NOTE | 2024-02-06 19:30 | NUR ---
PATIENT'S RESPIRATIONS IN LOW TO MID 40S. PATIENT HAS LABORED BREATHING AND HAS INCREASED WORK OF BREATHING. FAMILY AT BEDSIDE. NOTIFIED DR. BROWN. NEW ORDERS PLACED.
[2024-02-06] MEDS ORDERED: MORPHINE SULFATE 4 MG/ML VIAL IV PRN (21:10)
[2024-02-07] VITALS (44 sets, daily range): BP systolic 93–125; BP diastolic 49–78
[2024-02-07 04:37] LABS: BASO% 0.2 % (0-3); HEMATOCRIT 22.9 % (37.0-47.0); HEMOGLOBIN 7.5 g/dl (12.0-16.0); LYMPH% 7.5 % (15-41); MEAN CELL VOLUME 90.2 fL CALC (80.0-100.0); MEAN CORPUSCULAR HGB 29.5 pG CALC (26.0-32.0); MEAN CORPUSCULAR HGB CONC 32.8 g/dL CAL (32.0-36.0); MONO% 4.7 % (2-13); NEUT# 5.7 thou/uL (2.00-7.15); NEUT% 85.6 % (42-76); RED BLOOD COUNT 2.54 mill/uL (4.20-5.60); RED CELL DISTRI WIDTH 19.2 % (11.5-15.5)
[2024-02-07 05:06] LABS: BILIRUBIN, TOTAL 1.2 mg/dL (0.02-1.3); C-REACTIVE PROTEIN 6.4 mg/dL (0-0.9); CREATININE 1.7 mg/dL (0.5-1.0); POTASSIUM 3.7 mmol/l (3.5-5.1)
[2024-02-07 05:16] LABS: ALBUMIN 3.1 g/dL (3.2-5.0); TOTAL PROTEIN 5.4 g/dL (6.3-8.2)
[2024-02-07 07:26] LABS: HEMATOCRIT 23.7 % (37.0-47.0); HEMOGLOBIN 7.9 g/dl (12.0-16.0)
[2024-02-07 09:58] LABS: HEMATOCRIT 25.3 % (37.0-47.0); HEMOGLOBIN 8.2 g/dl (12.0-16.0); MEAN CELL VOLUME 90.4 fL CALC (80.0-100.0); MEAN CORPUSCULAR HGB 29.3 pG CALC (26.0-32.0); MEAN CORPUSCULAR HGB CONC 32.4 g/dL CAL (32.0-36.0); RED BLOOD COUNT 2.8 mill/uL (4.20-5.60); RED CELL DISTRI WIDTH 19.1 % (11.5-15.5)
--- NOTE | 2024-02-07 10:00 | NUR ---
ROUNDING COMPLETE. ASSESSMENT UNCHANGED. SISTER/DAUGHTER AT BEDSIDE. NO CONCERNS AT THIS TIME. WILL CONTINUE WITH PLAN OF CARE.
[2024-02-07] MEDS ORDERED: ACETAMINOPHEN 1,000 MG/100 ML VIAL IV PRN (10:05)
[2024-02-07] MEDS ORDERED: METOPROLOL TARTRATE 5 MG/5 ML VIAL IV SCH (12:00)
--- NOTE | 2024-02-07 12:01 | NUR ---
PATIENT APPEARS TO BE RESTING WITH EYES CLOSED. SISTER AT BEDSIDE. NO APPARENT DISTRESS NOTED. WILL CONTINUE WITH PLAN OF CARE.
--- NOTE | 2024-02-07 14:00 | NUR ---
PATIENT APPEARS TO BE RESTING WITH EYES CLOSED. DAUGHTER AT BEDSIDE. ASSESSMENT UNCHANGED. WILL CONTINUE TO MONITOR.
--- NOTE | 2024-02-07 14:08 | NUR ---
PATIENT APPEARS TO BE RESTING WITH EYES CLOSED. DAUGHTER AT BEDSIDE. ASSESSMENT UNCHANGED. WILL CONTINUE WITH PLAN OF CARE.
--- NOTE | 2024-02-07 16:05 | NUR ---
DR. FREEMAN TELEROUNDING AT BEDSIDE TO DISCUSS PLAN OF CARE. PER ONLINE CONTENT COORDINATOR CONTINUE WITH CURRENT PLAN OF CARE.
--- NOTE | 2024-02-07 18:02 | NUR ---
PATIENT IN HIGH FOWLS POSITION. ON VAPOTHERM SINCE 1735 AT 40L/MIN, 40% OXYGEN. PATIENT ALERT AND ORIENTED X 3. SINUS TACH ON THE MONITOR. RR 22. BP 118/66 AND OXY SATURATION 96%. DENIES PAIN AT THIS TIME. WILL CONTINUE TO MONITOR PATIENT'S OXYGEN LEVEL AND ORIENTATION ON VAPOTHERM.
--- NOTE | 2024-02-07 20:00 | NUR ---
pt assessed turned repositioned pulled up new green pad old pad removed. dumont drainaing clear yellow. Daughter at bedside. on Vapotherm brething RR40 plus a minute tacky HR 100-113, plan to go back on BIPAP to sleep, lungs course diminished , heels elevated on a pillow. SCDs on. dumont emptied for 500cc and recorded in I and 0, mouth cleaned and mouth moisturizer appled in prep for bipap. dumont care done.
--- NOTE | 2024-02-07 22:00 | NUR ---
pt put back on BIPAP by RT earlier, given 1 mg morphine RR easy and unlabored in 20s. HR 99-102, Pt sleeping comfortbaly on the BIPAP daughter at bedisde. IV ABX hung.
[2024-02-08] VITALS (49 sets, daily range): BP systolic 83–139; BP diastolic 44–82
--- NOTE | 2024-02-08 | NUR ---
pt assessed listened to lung sounds on the BIPAP, asked pt if she needed anything turned her to the LEFT with pillow , daughter at bedside. dumont intact draining no dependent loops dumont stat lock on . drainaing clear yellow. temp taken afebrile. all needs met , on caridac monitor sats 100%, RR 22-23 NSR. helf metoprololfor SBP < 100. monitoring closely.
[2024-02-08] MEDS ORDERED: Levofloxacin 750 mg Premix 150 ML IV SCH (01:00)
--- NOTE | 2024-02-08 04:00 | NUR ---
labs drawn, pt turned , lung sounds course, clear diminished. daughter at bedside, 0400 LAsix given via subclavian port aseptic technique , green alsochol cap applied to line after flushed with 20cc NS.call andres within reach all monitos on , dumont intact no dependent loops dumont off the ground hung on bed. stat lock in place. NSR on monitor. BIPAP on . pt resting comfortably. no distress. RR 22-27/min. afebrile. all monitors and alarms on . All safety measures in place.
[2024-02-08 05:03] LABS: ALBUMIN 2.8 g/dL (3.2-5.0); BILIRUBIN, TOTAL 1.3 mg/dL (0.02-1.3); CREATININE 1.6 mg/dL (0.5-1.0); MAGNESIUM 2.3 mg/dL (1.6-2.3)
[2024-02-08 05:07] LABS: C-REACTIVE PROTEIN 6.3 mg/dL (0-0.9)
--- NOTE | 2024-02-08 05:44 | NUR ---
spoke to DR. Summers about pt's labs this AM, Glucose over 300 Hemaglobin of 7.2 K of 3.0. stated he will be reviewing chart and Labs and ordering blood this am. no new verbal orders over the phone at this time.
[2024-02-08] MEDS ORDERED: POTASSIUM CHLORIDE 20MEQ 100 ML IV SCH (05:45)
[2024-02-08] MEDS ORDERED: DEXTROSE 250 ML IV PRN ×3 (05:50→19:00)
[2024-02-08] MEDS ORDERED: INSULIN LISPRO 100 UNITS/ML ML SC SCH ×2 (07:00→21:00)
--- NOTE | 2024-02-08 07:00 | NUR ---
new order in for CBC peripheral stick to double check H/H , plan of care. with RT and daylight RN to go on vapotherm at 0730 and washed after on vapotherm , per Pt's daughter and ptAshlyn dumont emptied for 700cc total of 1500 out for shift and K runs started.
--- NOTE | 2024-02-08 07:29 | NUR ---
PATIENT APPEARS TO BE RESTING WITH EYES CLOSED. DAUGHTER AT BEDSIDE. DISCUSSED GIVING PATIENT BED BATH ON BIPAP VS VAPOTHERM WITH DAUGHTER, VERBALIZED UNDERSTANDING. WILL COMPLETE BATH AT 0800 PATIENT IS STILL RESTING WITH EYES CLOSED.
[2024-02-08 07:42] LABS: BASO% 0.1 % (0-3); HEMATOCRIT 24.4 % (37.0-47.0); HEMOGLOBIN 7.9 g/dl (12.0-16.0); IMMATURE GRANULOCYTES 1.3 % (0.0-5.0); LYMPH% 6.8 % (15-41); MEAN CELL VOLUME 91.7 fL CALC (80.0-100.0); MEAN CORPUSCULAR HGB 29.7 pG CALC (26.0-32.0); MEAN CORPUSCULAR HGB CONC 32.4 g/dL CAL (32.0-36.0); MONO% 3.7 % (2-13); NEUT# 7.29 thou/uL (2.00-7.15); NEUT% 88.1 % (42-76); RED BLOOD COUNT 2.66 mill/uL (4.20-5.60); RED CELL DISTRI WIDTH 19.9 % (11.5-15.5)
--- NOTE | 2024-02-08 08:03 | NUR ---
DR. BROWN ROUNDING AT BEDSIDE TO DISCUSS PLAN OF CARE.
--- NOTE | 2024-02-08 08:03 | NUR ---
PATIENT PROVIDED COMPLETE BED BATH AND LINEN CHANGE. PATIENT ALERT AND ORIENTED X 4. DAUGHTER AT BEDSIDE. PATIENT SETTLED BACK IN BED. ASSESSMENT COMPLETED (SEE INTERVENTIONS). SAFETY MEASURES IN PLACE INCLUDING BED IN LOW POSITION AND CALL LIGHT RESTING NEXT TO R HAND. WILL CONTINUE [facility] PLAN OF CARE.
[2024-02-08] MEDS ORDERED: FUROSEMIDE 40 MG/4 ML SDV IV PRN (08:20)
[2024-02-08] MEDS ORDERED: SODIUM CHLORIDE 0.9% 500 ML IV ONE (08:20)
--- NOTE | 2024-02-08 08:46 | NUR ---
PRELIMINARY BLOOD CULTURE RESULTS GIVEN TO DR BROWN. CONTINUE CURRENT ANTIBIOTICS UNTIL FINAL RESULTS
[2024-02-08] MEDS ORDERED: FLUTICASONE PROPIONATE (Nasal) 50MCG/SPRAY INH SCH (09:30)
--- NOTE | 2024-02-08 09:46 | NUR ---
RT AT BEDSIDE TO PLACE PATIENT ON VAPOTHERM.
--- NOTE | 2024-02-08 10:00 | NUR ---
PATIENT TOLERATING VAPOTHERM WELL. DENIES CONCERNS AT THIS TIME. NO APPARENT DISTRESS NOTED. WILL CONTINUE TO MONITOR.
--- NOTE | 2024-02-08 12:26 | NUR ---
PATIENT REMAINS ON VAPOTHERM. VITAL SIGNS STABLE. FAMILY MEMBERS AT BEDSIDE. PATIENT EATING PUDDING AND TAKING SMALL SIPS OF WATER. DENIES CONCERNS AT THIS TIME. WILL CONTINUE WITH PLAN OF CARE.
--- NOTE | 2024-02-08 14:00 | NUR ---
PATIENT APPEARS TO BE RESTING WITH EYES CLOSED. ROUNDING COMPLETE. ASSESSMENT UNCHANGED. VITAL SIGNS STABLE. WILL CONTINUE [facility] PLAN OF CARE.
--- NOTE | 2024-02-08 16:00 | NUR ---
PATIENT TAKEN DOWN FOR CT WITH BIPAP VIA THIS NURSE AND RT.
[2024-02-08] MEDS ORDERED: MAGNESIUM HYDROXIDE 30 ML UDC PO ONE (17:00)
[2024-02-08] MEDS ORDERED: MAGNESIUM HYDROXIDE 30 ML UDC PO PRN (17:00)
--- NOTE | 2024-02-08 18:12 | NUR ---
PATIENT SITTING UP IN BED ON VAPOTHERM AT 40L/35%. PATIENT DENIES ANY ISSUES OR CONCERNS AT THIS TIME AND STATES SHE IS "FEELING MUCH BETTER". NO APPARENT DISTRESS NOTED. WILL CONTINUE WITH PLAN OF CARE.
[2024-02-08 18:35] LABS: CREATININE 1.3 mg/dL (0.5-1.0)
[2024-02-08 18:41] LABS: POTASSIUM 3.9 mmol/l (3.5-5.1)
[2024-02-08] MEDS ORDERED: INSULIN DETEMIR 100 UNITS/ML SC SCH (19:00)
--- NOTE | 2024-02-08 20:00 | NUR ---
pt assessed family and daughter at bedside , on Vapotherm 40L 30%, RR 20s unlabored, only with extertion . pt has scds on and doing foot pump exercises and reports repositioning herself, went over new orders for lantus and glucose labs , and plan of care. dumont intact draining clear yellow. lungs sound better compared to yesterday MATA is now clear anteriorly all other calderon diminished. afebrile. HR NSR, all cadiac monitors on all alarms on , call andres within reach.
--- NOTE | 2024-02-08 22:00 | NUR ---
pt rounded on dumont care done, face washed and . pt brushed her own teeth. new top sheet. all needs met. alox4 on vapotherm abx hung . call andres within reach daughter at bedside.
[2024-02-09] VITALS (29 sets, daily range): BP systolic 99–137; BP diastolic 50–79
--- NOTE | 2024-02-09 | NUR ---
pt assessed afebrile , pt awake on ph. assisted in making room appropriate for sleep, lightts off repositioned. pillow under lower legs SCD on . daughter at bedside , on vapotherm . sats 99%. RR easy and unlabored.
--- NOTE | 2024-02-09 01:05 | NUR ---
pt called and requested ativan for sleep. 1mg given , all needs met. med given flusghed with 10cc NS new green cap on end of port access.
--- NOTE | 2024-02-09 02:00 | NUR ---
pt resting comfortably on vapotherm , good relaxing result from ativan an azul earlier. dumont draining clear yellow, daughter sleeping at bedside HR 76 good effect from metoprolol scheduled. RR easy and unlabored RR 20-25. all monitors and alrms on , call andres within reach water at bedside all needs met.
--- NOTE | 2024-02-09 04:00 | NUR ---
rounded assessed pt , pt sleeping with vapotherm out of her nose sats were 92-94, vapotherm put bcak in nose , called RT and let her know incase she wanted to put pt on regular NC, RT stated she will keep her on vapotherm until AM shift then ween. Lasix IV given new green cap aseptic tecqnique. repositioned. daughter at bedside , recyclable materials sorter drawing labs dumont intact and drainign clear yellow. all moniotrs and alarms on . call andres within reach
[2024-02-09 04:47] LABS: HEMATOCRIT 31.3 % (37.0-47.0); HEMOGLOBIN 10.3 g/dl (12.0-16.0); IMMATURE GRANULOCYTES 1.8 % (0.0-5.0); MEAN CELL VOLUME 89.7 fL CALC (80.0-100.0); MEAN CORPUSCULAR HGB 29.5 pG CALC (26.0-32.0); MEAN CORPUSCULAR HGB CONC 32.9 g/dL CAL (32.0-36.0); MONO% 3.5 % (2-13); NEUT# 6.77 thou/uL (2.00-7.15); NEUT% 85.7 % (42-76); RED BLOOD COUNT 3.49 mill/uL (4.20-5.60); RED CELL DISTRI WIDTH 18.8 % (11.5-15.5)
[2024-02-09 05:27] LABS: ALBUMIN 2.9 g/dL (3.2-5.0); BILIRUBIN, TOTAL 1.4 mg/dL (0.02-1.3); C-REACTIVE PROTEIN 4.3 mg/dL (0-0.9); CREATININE 1.1 mg/dL (0.5-1.0); POTASSIUM 4.3 mmol/l (3.5-5.1); TOTAL PROTEIN 5.2 g/dL (6.3-8.2)
--- NOTE | 2024-02-09 06:27 | NUR ---
pt rounded on urine emptied 1100 for shift. pt sleeping soundly on vapo therm sats 97 RR easy and unlabored. daughter sleeping at bedside , all monitors on , call andres within reach, all needs met.
--- NOTE | 2024-02-09 07:30 | NUR ---
Report received from operations supervisor 2nd shift nurse. Patient is resting in bed, denies any pain at this time. A&Ox4, on vapotherm , BIPAP on standby. RT is weaning vapotherm. Lema in place. Family at bedside. Dr Antunez at bedside. Plan for echo today and infectious disease consult. VS WNL, NSR on monitor. All needs addressed at this time. Call light within reach.
[2024-02-09 08:14] LABS: HEMATOCRIT 32.8 % (37.0-47.0); HEMOGLOBIN 11.1 g/dl (12.0-16.0); MEAN CELL VOLUME 88.2 fL CALC (80.0-100.0); MEAN CORPUSCULAR HGB 29.8 pG CALC (26.0-32.0); MEAN CORPUSCULAR HGB CONC 33.8 g/dL CAL (32.0-36.0); RED BLOOD COUNT 3.72 mill/uL (4.20-5.60); RED CELL DISTRI WIDTH 18.9 % (11.5-15.5)
[2024-02-09] MEDS ORDERED: DEXAMETHASONE 2 MG/TAB TAB PO SCH (09:00)
--- NOTE | 2024-02-09 10:00 | NUR ---
Patient is resting in bed, denies any pain. On vapotherm 30/35 and tolerating, BIPAP on standby. Family at bedside. Patient has slept most of the morning, awakes to verabl stimuli. Lema in place, NSR on tele monitor, VS WNL. All needs addressed at this time. Call light and belongings within reach.
--- NOTE | 2024-02-09 11:21 | NUR ---
S: MICHELA FOWLER is a 63 F who presents with gram positive bacteremia and pneumonitis. She has a history of arthritis, cancer, diabetes, hypertension, osteoporosis, [place] with no stents, and GERD. All medications in patient's chart were reviewed. O: VS: BP 111/55 mmHg, P 90, RR 32,T 97.5 F W 63 kg, HT 157 cm, Scr=1.1,CrCl= 46 ml/min Vancomycin Trough: 16 A: Blood culture shows Enterococcus faecalis which is sensitive to ampicillin and vancomysin. P: Patient is on cefepime 2 g IV Q12H. Vancomycin ordered for pharmacy to dose. Contine Vancomycin 750 mg IV Q24H. Vancomycin trough is drawn before the 4th dose on 02/12/24 at 1030. Vancomycin goal trough is between 15-20 mcg/ml. Pharmacy will follow and or advise on antibiotics use as needed.
--- NOTE | 2024-02-09 12:00 | NUR ---
Patient is resting in bed, denies any pain. Family at bedside. On vapotherm, BIPAP on standby. RT is weaning as tolerated. Lema in place, VS WNL, NSR on tele monitor. All needs addressed at this time. Call light and belongings within reach.
--- NOTE | 2024-02-09 16:00 | NUR ---
Patient is working with PT sitting up on the side of the bed. On vapotherm at 20L/30%, BIPAP on standby. Lema in place, VS WNL, ST on tele monitor. All needs addressed at this time, call light and belongings within reach.
--- NOTE | 2024-02-09 17:45 | NUR ---
Contacted Dr Antunez about patients blood sugar of 426. 14 units given. Waiting to hear back for any other orders.
--- NOTE | 2024-02-09 18:00 | NUR ---
Patient is sitting up in bed, eating dinner. States that she feels much better today. On vapotherm 20L/30% and tolerating, BIPAP on standby. family at bedside. Lema in place, VS WNL, NSR on tele monitor. All needs addressed at this time. Call light and belongings within reach.
--- NOTE | 2024-02-09 18:25 | NUR ---
Additional 5 units of insulin ordered per Dr Antunez.
[2024-02-09] MEDS ORDERED: INSULIN LISPRO 100 UNITS/ML ML SC SCH (19:05)
--- NOTE | 2024-02-09 20:00 | NUR ---
pt assessed earlier given additiuonal 5 units of regular right after 1900, on vapotherm 20L and 30%, family at bedside , dumont drainang clear yellow sats good in high 90s, on bumper operator all needs met. Infectious disease rounded via telemed with pt and this RN. call andres within reach.
--- NOTE | 2024-02-09 22:00 | NUR ---
rounded on pt , IV abx hung aseptically. linens changed out , pt repositioned. SCDs put back on and machine turned on . dumont drainaing clear yellow , on hall monitor, all alarms on and safety measures in place. daughter at bedside. nelida andres within reach.
[2024-02-10] VITALS (18 sets, daily range): BP systolic 85–128; BP diastolic 46–73
--- NOTE | 2024-02-10 | NUR ---
pt assesssed , no shortness of breath , metoprolol scheduled given plan to medicate with IV tylenol per pt request for pain, next dose at 0122. call andres within reach all needs met.
--- NOTE | 2024-02-10 02:00 | NUR ---
pt resting sleeping comfortably on vapotherm 20L 30%, sats 95 or greater. dumont grainging clear yellow. IV tylenol given with good effect. daughter at bedside sleeping in chair. all monitors on and alarms. call andres within reach.
--- NOTE | 2024-02-10 04:00 | NUR ---
pt assessed , 0400 am med given lasix IV , lab in room drawing labs periperally. daugheter sleeping at bedside. monitoring and evaluation advisor on and all alarms on. call andres within reach julia herbert. pt comfortable all needs met.
[2024-02-10 05:04] LABS: HEMATOCRIT 31.8 % (37.0-47.0); HEMOGLOBIN 11.1 g/dl (12.0-16.0); MEAN CELL VOLUME 88.6 fL CALC (80.0-100.0); MEAN CORPUSCULAR HGB 30.9 pG CALC (26.0-32.0); MEAN CORPUSCULAR HGB CONC 34.9 g/dL CAL (32.0-36.0); RED BLOOD COUNT 3.59 mill/uL (4.20-5.60); RED CELL DISTRI WIDTH 19.2 % (11.5-15.5)
[2024-02-10 05:22] LABS: ALBUMIN 2.9 g/dL (3.2-5.0); BILIRUBIN, TOTAL 1.4 mg/dL (0.02-1.3); CREATININE 1.1 mg/dL (0.5-1.0); MAGNESIUM 2.7 mg/dL (1.6-2.3); POTASSIUM 3.6 mmol/l (3.5-5.1); TOTAL PROTEIN 5.3 g/dL (6.3-8.2)
--- NOTE | 2024-02-10 06:04 | NUR ---
pt sleeping on vapotherm , call dmitry pedersen . julia emptied for 1050 daughter sleeping at bedside . lopressor iv held due to low bp from lasix at 4am . all needs met . all safety measures in palce.
[2024-02-10] MEDS ORDERED: AMPICILLIN SODIUM 2 GM IV SCH (07:25)
--- NOTE | 2024-02-10 07:30 | NUR ---
Report received from night court magistrate nurse. Patient is resting in bed, denies any pain. On vapotherm 15L/30% and tolerating, BIPAP on standby. Family at bedside. Dr Antunez at bedside. Antibiotics changed per ID recommendation. Patient has dumont in place, VS WNL, NSR on tele monitor. All needs addressed at this time. Call light within reach.
[2024-02-10] MEDS ORDERED: AMPICILLIN SODIUM 2 GM in SODIUM CHLORIDE 0.9% 100 ML IV SCH (08:00)
--- NOTE | 2024-02-10 09:45 | NUR ---
Spoke with Dr Antunez, he wants to transfer patient to [facility].
--- NOTE | 2024-02-10 10:00 | NUR ---
PT worked with patient and got her up and into recliner chair, family at bedside. Patient is on vapotherm 15L/30%, BIPAP on standby. Lema in place, VS WNL, ST on tele monitor. Explained plan for patient to transfer to [facility] for more in depth workup. Patient is agreeable. All needs addressed at this time. Call light and belongings within reach.
--- NOTE | 2024-02-10 12:00 | NUR ---
PT helped patient back to bed, family at bedside. Patient is A&Ox4, on vapotherm 10L/30% and tolerating, BIPAP on standby. VS WNL, NSR on tele monitor, dumont in place. All needs addressed at this time. Call light and belongings within reach.
--- NOTE | 2024-02-10 14:55 | NUR ---
Patient has been accepted to [facility] and assigned a bed, room [id number].
--- NOTE | 2024-02-10 15:00 | NUR ---
Report called to receiving nurse at [facility].
--- NOTE | 2024-02-10 15:35 | NUR ---
Patient left with medical transport to [facility]. Some belongings sent with patient and others home with daughter.
== END 2024-02-10 15:35 | disposition short-term general hospital (02) | DRG 288 ==
LOC: ED 23:16 → ED-I 02-06 00:18 → ED 02-06 00:18 → ED-I 02-06 00:37 → ED 02-06 00:53 → MS2 02-06 00:54 → ICU 02-06 01:41
PROVIDERS: Family Medicine; Student in an Organized Health Care Education/Training Program; ADMIT Internal Medicine; ATTEND Internal Medicine
PROC: 0T9B70Z Drainage of Bladder with Drainage Device, Via Natural or Artificial Opening (ICD-10-PCS; principal; 2024-02-06)
PROC: 5A09457 Assistance with Respiratory Ventilation, 24-96 Consecutive Hours, Continuous Positive Airway Pressure (ICD-10-PCS; 2024-02-06)
PROC: 5A0945A Assistance with Respiratory Ventilation, 24-96 Consecutive Hours, High Flow/Velocity Cannula (ICD-10-PCS; 2024-02-07)
PROC: 30233N1 Transfusion of Nonautologous Red Blood Cells into Peripheral Vein, Percutaneous Approach (ICD-10-PCS; 2024-02-08)
DX: I33.0 Acute and subacute infective endocarditis (principal); I50.33 Acute on chronic diastolic (congestive) heart failure; J96.01 Acute respiratory failure with hypoxia; I13.0 Hypertensive heart and chronic kidney disease with heart failure and stage 1 through stage 4 chronic kidney disease, or unspecified chronic kidney disease; E87.20 Acidosis, unspecified; I42.8 Other cardiomyopathies; E87.3 Alkalosis; N17.9 Acute kidney failure, unspecified; R78.81 Bacteremia; B95.2 Enterococcus as the cause of diseases classified elsewhere; E11.22 Type 2 diabetes mellitus with diabetic chronic kidney disease; N18.9 Chronic kidney disease, unspecified; D64.9 Anemia, unspecified; K21.9 Gastro-esophageal reflux disease without esophagitis; J98.4 Other disorders of lung; I08.0 Rheumatic disorders of both mitral and aortic valves; I25.10 Atherosclerotic heart disease of native coronary artery without angina pectoris; M06.9 Rheumatoid arthritis, unspecified; I25.2 Old myocardial infarction; E11.65 Type 2 diabetes mellitus with hyperglycemia; T38.0X5A Adverse effect of glucocorticoids and synthetic analogues, initial encounter; Z85.43 Personal history of malignant neoplasm of ovary; Z20.822 Contact with and (suspected) exposure to COVID-19; Z79.899 Other long term (current) drug therapy; Z87.891 Personal history of nicotine dependence; Z95.828 Presence of other vascular implants and grafts; E66.9 Obesity, unspecified; Z68.25 Body mass index [BMI] 25.0-25.9, adult
CPT/HCPCS: J0131; J0692; J1100; J2060; J3370; P9016; Q9967